=== PATIENT | male | born 1985 | race Caucasian/White ===

== ENCOUNTER 2022-05-09 15:27 | Emergency (ER) | payer OTHER ==
[~2022-05-09] VITALS: Ht 167.6 cm; Wt 70.3 kg
[2022-05-09 15:37] VITALS: BP 132/77
[2022-05-09] MEDS ORDERED: CLOT15CR27 TP (15:47)
== END 2022-05-09 16:01 | disposition home or self-care (01) ==
LOC: ER 15:29
DX: B35.3 Tinea pedis (principal); F17.200 Nicotine dependence, unspecified, uncomplicated; Z59.00 Homelessness unspecified

== ENCOUNTER 2024-05-06 13:16 | Inpatient (IN) | payer MEDICAID, OTHER ==
[~2024-05-06] VITALS: Ht 172.7 cm; Wt 66.2 kg
[~2024-05-06 13:16] MED LIST: CLOT15CR27 TP
[2024-05-06] MEDS ORDERED: VANCOMYCIN 1 GM /D5W 250 ML PB IV ONE (14:41)
[2024-05-06] MEDS ORDERED: PIPERACI/TAZO 3.375GM/D5W 50ML PB IV ONE (14:41)
[2024-05-06] MEDS: PIPERACILLIN /TAZOBACTAM 3.375 G in IV D5W 50 ML IV ONE ×2 (14:56→22:51)
[2024-05-06 15:01] LABS: POTASSIUM 4.2 mmol/L (3.5-5.1)
[2024-05-06 15:05] LABS: BASOPHILS % (AUTO) 1.1 % (0.0-2.0); EOSINOPHILS # (AUTO) 0.1 K/uL (0.0-0.7); EOSINOPHILS % (AUTO) 4.1 % (0.0-6.0); HEMATOCRIT 38 % (39-51); HEMOGLOBIN 12.7 g/dL (13.5-17.5); LYMPHOCYTES # (AUTO) 1.6 K/uL (0.8-4.8); LYMPHOCYTES % (AUTO) 49.6 % (20.0-44.0); MEAN CORPUSCULAR HEMOGLOBIN 28 PG (26.0-33.0); MEAN CORPUSCULAR HGB CONC 33 g/dl (31.0-36.0); MEAN CORPUSCULAR VOLUME 84 fL (80-96); MONOCYTES # (AUTO) 0.4 K/uL (0.1-1.30); MONOCYTES % (AUTO) 12.9 % (2.0-12.0); NEUTROPHILS # (AUTO) 1.1 K/uL (1.8-8.9); NEUTROPHILS % (AUTO) 32.3 % (43.0-81.0); PLATELET COUNT (AUTO) 361 K/uL (150-450); RED BLOOD CELL COUNT(AUTO) 4.53 MIL/uL (4.5-6.0); RED CELL DISTRIBUTION WIDTH 13.5 % (11.5-15.0); WHITE BLOOD COUNT (AUTO) 3.3 K/uL (4.3-11.0)
[2024-05-06] MEDS: VANCOMYCIN 1 GM in IV D5W 250 ML IV ONE ×2 (15:10→23:46)
[2024-05-06 15:15] LABS: CALCIUM, SERUM 9.7 mg/dL (8.5-10.1); INR 0.98 (0.91-1.10); PARTIAL THROMBOPLASTIN TIME 27.9 SEC (24.3-34.3); PROTHROMBIN TIME 10.4 SECS (9.2-11.1)
[2024-05-06 20:00] VITALS: BP 116/74; TEMP 97.9; O2SAT 98
[2024-05-06] MEDS ORDERED: ACETAMINOPHEN 325 MG TABLET PO PRN (22:30)
[2024-05-06] MEDS ORDERED: ONDANSETRON HCL/PF 4 MG/2 ML VIAL IVP PRN (22:30)
[2024-05-06] MEDS ORDERED: MAGNESIUM HYDROXIDE 30 ML UDC PO PRN (22:30)
[2024-05-06] MEDS ORDERED: Z GUARD REMEDY 4 OZ OINT TP PRN (22:30)
[2024-05-06] MEDS ORDERED: ZOLPIDEM TARTRATE 5 MG TABLET PO PRN (22:30)
[2024-05-06] MEDS ORDERED: MAG HYDROX/AL HYDROX/SIMETH 30 ML UDC PO PRN (22:30)
[2024-05-06] MEDS: PIPERACI/TAZO 3.375GM/D5W 50ML PB IV ONE (22:49)
[2024-05-06] MEDS: VANCOMYCIN 1 GM /D5W 250 ML PB IV ONE (23:43)
[2024-05-07] MEDS ORDERED: PIPERACILLIN /TAZOBACTAM 3.375 G in IV D5W 50 ML IV SCH (05:00)
[2024-05-07 06:13] LABS: BASOPHILS % (AUTO) 0.6 % (0.0-2.0); EOSINOPHILS # (AUTO) 0.2 K/uL (0.0-0.7); EOSINOPHILS % (AUTO) 3.2 % (0.0-6.0); HEMATOCRIT 39 % (39-51); LYMPHOCYTES # (AUTO) 1.6 K/uL (0.8-4.8); LYMPHOCYTES % (AUTO) 29.3 % (20.0-44.0); MEAN CORPUSCULAR HEMOGLOBIN 29 PG (26.0-33.0); MEAN CORPUSCULAR HGB CONC 33 g/dl (31.0-36.0); MEAN CORPUSCULAR VOLUME 86 fL (80-96); MONOCYTES # (AUTO) 0.6 K/uL (0.1-1.30); MONOCYTES % (AUTO) 10.6 % (2.0-12.0); NEUTROPHILS # (AUTO) 3.1 K/uL (1.8-8.9); NEUTROPHILS % (AUTO) 56.3 % (43.0-81.0); PLATELET COUNT (AUTO) 338 K/uL (150-450); RED BLOOD CELL COUNT(AUTO) 4.58 MIL/uL (4.5-6.0); RED CELL DISTRIBUTION WIDTH 13.5 % (11.5-15.0); WHITE BLOOD COUNT (AUTO) 5.4 K/uL (4.3-11.0)
[2024-05-07 06:24] LABS: CALCIUM, SERUM 8.5 mg/dL (8.5-10.1); CREATININE 0.9 mg/dL (0.6-1.3); MAGNESIUM 2.5 mg/dL (1.8-2.4); PHOSPHORUS 3.8 mg/dL (2.5-4.9); POTASSIUM 4.2 mmol/L (3.5-5.1)
[2024-05-07 07:30] VITALS: BP 125/90; TEMP 97.9; O2SAT 100
[2024-05-07] MEDS: VANCOMYCIN 1 GM in IV D5W 250 ML IV SCH (07:49)
[2024-05-07] MEDS: PIPERACILLIN /TAZOBACTAM 3.375 G in IV D5W 100 ML IV SCH (09:37)
[2024-05-07 16:00] VITALS: BP 116/80; TEMP 98.2; O2SAT 100
[2024-05-07] MEDS: LIDOCAINE 1% INJ 50 ML MDV IJ ONE (16:36)
[2024-05-07 20:15] VITALS: BP 102/67; TEMP 97.7; O2SAT 97
[2024-05-08 07:23] LABS: BASOPHILS % (AUTO) 0.5 % (0.0-2.0); EOSINOPHILS # (AUTO) 0.1 K/uL (0.0-0.7); EOSINOPHILS % (AUTO) 1.2 % (0.0-6.0); HEMATOCRIT 38 % (39-51); HEMOGLOBIN 12.7 g/dL (13.5-17.5); LYMPHOCYTES # (AUTO) 1.7 K/uL (0.8-4.8); LYMPHOCYTES % (AUTO) 30.8 % (20.0-44.0); MEAN CORPUSCULAR HEMOGLOBIN 28 PG (26.0-33.0); MEAN CORPUSCULAR HGB CONC 33 g/dl (31.0-36.0); MEAN CORPUSCULAR VOLUME 85 fL (80-96); MONOCYTES # (AUTO) 0.5 K/uL (0.1-1.30); MONOCYTES % (AUTO) 9.5 % (2.0-12.0); NEUTROPHILS # (AUTO) 3.3 K/uL (1.8-8.9); PLATELET COUNT (AUTO) 314 K/uL (150-450); RED BLOOD CELL COUNT(AUTO) 4.48 MIL/uL (4.5-6.0); RED CELL DISTRIBUTION WIDTH 13.3 % (11.5-15.0); WHITE BLOOD COUNT (AUTO) 5.6 K/uL (4.3-11.0)
[2024-05-08 07:34] LABS: CALCIUM, SERUM 8.8 mg/dL (8.5-10.1); MAGNESIUM 2.2 mg/dL (1.8-2.4); PHOSPHORUS 3.4 mg/dL (2.5-4.9); POTASSIUM 3.9 mmol/L (3.5-5.1)
[2024-05-08] MEDS: HYDROCODONE/APAP 5/325MG TABLET PO PRN (18:48)
[2024-05-08 20:00] VITALS: BP 121/85; TEMP 98.2; O2SAT 97
[2024-05-08] MEDS: AMOX/CLAVULANATE 875 MG TABLET PO SCH (21:15)
[2024-05-09 07:56] LABS: CALCIUM, SERUM 8.8 mg/dL (8.5-10.1); POTASSIUM 4.2 mmol/L (3.5-5.1)
[2024-05-09 08:00] VITALS: BP 93/75; TEMP 97.7; O2SAT 97
[2024-05-09 16:00] VITALS: BP 103/73; TEMP 97.7; O2SAT 97
[2024-05-09 21:19] VITALS: BP 101/68; TEMP 98.4; O2SAT 99
[2024-05-10 08:00] VITALS: BP 101/68; TEMP 98.4; O2SAT 97
[2024-05-10 08:01] LABS: CALCIUM, SERUM 8.9 mg/dL (8.5-10.1); CREATININE 0.9 mg/dL (0.6-1.3)
[2024-05-10 16:00] VITALS: BP 106/65; TEMP 97.9; O2SAT 94
[2024-05-11 07:00] VITALS: BP 93/61; TEMP 97.5; O2SAT 98
[2024-05-11 07:39] LABS: CALCIUM, SERUM 8.7 mg/dL (8.5-10.1); CREATININE 0.9 mg/dL (0.6-1.3); POTASSIUM 3.8 mmol/L (3.5-5.1)
[2024-05-11] MEDS ORDERED: AMOX-430 PO (08:56)
== END 2024-05-11 15:00 | disposition home or self-care (01) | DRG 364 ==
LOC: ER 13:16 → MED 17:12
PROVIDERS: ADMIT Student in an Organized Health Care Education/Training Program; ATTEND Internal Medicine
PROC: 0J9J0ZZ Drainage of Right Hand Subcutaneous Tissue and Fascia, Open Approach (ICD-10-PCS; principal; 2024-05-07)
DX: L03.011 Cellulitis of right finger (principal); D64.9 Anemia, unspecified; F17.210 Nicotine dependence, cigarettes, uncomplicated; Z59.00 Homelessness unspecified
CPT/HCPCS: 36415; 73140-TC; 80048-TC; 80202-TC; 83735-TC; 84100-TC; 85025-TC; 85652-TC; 85730-TC; 86140-TC; 87040-TC; 87081-TC; A4223; A6403; A6407; G0378; J2543; J3370; J3490; J7030; J7050; J7060

== ENCOUNTER 2024-07-19 07:17 | Inpatient (IN) | payer MEDICAID ==
[~2024-07-19] VITALS: Ht 172.7 cm; Wt 68.0 kg
[~2024-07-19 07:17] MED LIST changes: +AMOX-430 PO; -CLOT15CR27 TP
[2024-07-19] MEDS ORDERED: LIDOCAINE 1% INJ 50 ML MDV IJ ONE ×2 (07:37→07:53)
[2024-07-19] MEDS ORDERED: ONDANSETRON HCL/PF 4 MG/2 ML VIAL ONE (07:54)
[2024-07-19] MEDS ORDERED: MORPHINE SULFATE INJ 4 MG/ML DISP.SYRIN ONE (07:54)
[2024-07-19] MEDS: IV NS 0.9% 1,000 ML BAG IV ONE (07:56)
[2024-07-19 08:09] LABS: BASOPHILS # (AUTO) 0.1 K/uL (0.0-0.2); BASOPHILS % (AUTO) 0.5 % (0.0-2.0); EOSINOPHILS # (AUTO) 0.2 K/uL (0.0-0.7); EOSINOPHILS % (AUTO) 1.8 % (0.0-6.0); HEMATOCRIT 37 % (39-51); HEMOGLOBIN 12.5 g/dL (13.5-17.5); LYMPHOCYTES # (AUTO) 1.9 K/uL (0.8-4.8); LYMPHOCYTES % (AUTO) 17.7 % (20.0-44.0); MEAN CORPUSCULAR HEMOGLOBIN 28 PG (26.0-33.0); MEAN CORPUSCULAR HGB CONC 34 g/dl (31.0-36.0); MEAN CORPUSCULAR VOLUME 84 fL (80-96); MONOCYTES # (AUTO) 1.2 K/uL (0.1-1.30); NEUTROPHILS # (AUTO) 7.3 K/uL (1.8-8.9); PLATELET COUNT (AUTO) 379 K/uL (150-450); RED BLOOD CELL COUNT(AUTO) 4.44 MIL/uL (4.5-6.0); RED CELL DISTRIBUTION WIDTH 13.8 % (11.5-15.0); WHITE BLOOD COUNT (AUTO) 10.7 K/uL (4.3-11.0)
[2024-07-19] MEDS: ONDANSETRON HCL/PF 4 MG/2 ML VIAL IV ONE (08:10)
[2024-07-19] MEDS: PIPERACILLIN /TAZOBACTAM 3.375 G in IV D5W 50 ML IV ONE (08:11)
[2024-07-19 08:13] LABS: CALCIUM, SERUM 9.4 mg/dL (8.5-10.1); CREATININE 0.9 mg/dL (0.6-1.3); POTASSIUM 4.3 mmol/L (3.5-5.1)
[2024-07-19] MEDS: LIDOCAINE 1% INJ 50 ML MDV IJ ONE (08:14)
[2024-07-19] MEDS: MORPHINE SULFATE INJ 2 MG/ML DISP.SYRIN IV ONE (08:15)
[2024-07-19] MEDS: VANCOMYCIN 1 GM in IV D5W 250 ML IV ONE (08:16)
[2024-07-19 08:23] LABS: LACTIC ACID 0.8 mmol/L (0.4-2.0)
[2024-07-19 16:00] VITALS: BP 111/83; TEMP 97.7; O2SAT 99
[2024-07-19] MEDS ORDERED: ACETAMINOPHEN 325 MG TABLET PO PRN (16:30)
[2024-07-19] MEDS ORDERED: ONDANSETRON HCL/PF 4 MG/2 ML VIAL IV PRN (16:30)
[2024-07-19] MEDS ORDERED: CEFEPIME 1 GM in IV D5W 50 ML IV SCH (16:30)
[2024-07-19] MEDS ORDERED: ZOLPIDEM TARTRATE 5 MG TABLET PO PRN (16:30)
[2024-07-19] MEDS: CEFEPIME 1 GM in IV D5W 50 ML IV SCH (17:13)
[2024-07-19] MEDS: VANCOMYCIN 1 GM in IV D5W 250ml IV SCH (17:54)
[2024-07-20 08:50] LABS: BASOPHILS % (AUTO) 0.5 % (0.0-2.0); EOSINOPHILS # (AUTO) 0.3 K/uL (0.0-0.7); EOSINOPHILS % (AUTO) 5.2 % (0.0-6.0); HEMATOCRIT 35 % (39-51); HEMOGLOBIN 11.6 g/dL (13.5-17.5); LYMPHOCYTES # (AUTO) 1.4 K/uL (0.8-4.8); LYMPHOCYTES % (AUTO) 25.6 % (20.0-44.0); MEAN CORPUSCULAR HEMOGLOBIN 28 PG (26.0-33.0); MEAN CORPUSCULAR HGB CONC 33 g/dl (31.0-36.0); MEAN CORPUSCULAR VOLUME 84 fL (80-96); MONOCYTES # (AUTO) 0.6 K/uL (0.1-1.30); MONOCYTES % (AUTO) 10.6 % (2.0-12.0); NEUTROPHILS # (AUTO) 3.2 K/uL (1.8-8.9); NEUTROPHILS % (AUTO) 58.1 % (43.0-81.0); PLATELET COUNT (AUTO) 327 K/uL (150-450); RED BLOOD CELL COUNT(AUTO) 4.14 MIL/uL (4.5-6.0); RED CELL DISTRIBUTION WIDTH 13.9 % (11.5-15.0); WHITE BLOOD COUNT (AUTO) 5.6 K/uL (4.3-11.0)
[2024-07-20 09:06] LABS: CALCIUM, SERUM 8.8 mg/dL (8.5-10.1); CREATININE 0.8 mg/dL (0.6-1.3); POTASSIUM 4.3 mmol/L (3.5-5.1)
[2024-07-20 16:00] VITALS: BP 105/67; TEMP 97.9; O2SAT 98
[2024-07-20 20:00] VITALS: BP 118/80; TEMP 98.3; O2SAT 100
[2024-07-21 08:00] VITALS: BP 108/72; TEMP 97.9; O2SAT 100
[2024-07-21 16:00] VITALS: BP 120/78; TEMP 98.2; O2SAT 100
[2024-07-21 20:00] VITALS: BP 119/82; TEMP 98.2
[2024-07-22 04:00] VITALS: BP 117/79; TEMP 97.9; O2SAT 100
[2024-07-22 08:00] VITALS: BP 123/95; TEMP 98.2; O2SAT 99
[2024-07-22] MEDS: HYDROCODONE/APAP 5/325MG TABLET PO PRN (08:02)
[2024-07-22 09:37] LABS: CALCIUM, SERUM 9.8 mg/dL (8.5-10.1); POTASSIUM 3.6 mmol/L (3.5-5.1)
[2024-07-22 14:24] LABS: HIV-1 p24 ANTIGEN NON REACTIVE (NONREACTIVE); HIV-1/2 ANTIBODY NON REACTIVE (NONREACTIVE)
[2024-07-22 15:09] LABS: CALCIUM, SERUM 9.6 mg/dL (8.5-10.1); CREATININE 0.9 mg/dL (0.6-1.3); POTASSIUM 3.7 mmol/L (3.5-5.1)
[2024-07-22 16:00] VITALS: BP 141/95; TEMP 98.8; O2SAT 99
[2024-07-22 20:00] VITALS: BP 114/81; TEMP 97.7; O2SAT 96
[2024-07-23 04:00] VITALS: BP 104/82; TEMP 97.5; O2SAT 96
[2024-07-23 08:00] VITALS: BP 102/70; TEMP 97.7; O2SAT 96
[2024-07-23 09:13] LABS: CALCIUM, SERUM 8.9 mg/dL (8.5-10.1); POTASSIUM 3.1 mmol/L (3.5-5.1)
[2024-07-23] MEDS ORDERED: POTASSIUM CHLORIDE 20 MEQ TAB.PRT.SR PO ONE (10:00)
[2024-07-23] MEDS ORDERED: GADOTERATE MEGLUMINE 10 MMOL/20 ML VIAL IV ONE (13:36)
[2024-07-23 13:37] LABS: CREATININE 0.8 mg/dL (0.6-1.3); POTASSIUM 3.4 mmol/L (3.5-5.1)
[2024-07-23] MEDS: POTASSIUM CHLORIDE 20 MEQ TAB.PRT.SR PO ONE (15:44)
[2024-07-23 16:00] VITALS: BP 110/70; TEMP 98; O2SAT 96
[2024-07-23 20:00] VITALS: BP 93/61; TEMP 97.3; O2SAT 96
[2024-07-24 08:24] LABS: CALCIUM, SERUM 8.9 mg/dL (8.5-10.1); CREATININE 0.9 mg/dL (0.6-1.3); POTASSIUM 3.9 mmol/L (3.5-5.1)
[2024-07-24] MEDS: VANCOMYCIN 750 MG in IV D5W 250 ML IV SCH (12:22)
[2024-07-24 13:43] LABS: CALCIUM, SERUM 9.1 mg/dL (8.5-10.1); POTASSIUM 4.1 mmol/L (3.5-5.1)
[2024-07-24] MEDS ORDERED: CEFT2VIA14 IV (15:08)
[2024-07-24] MEDS: CEFTRIAXONE 2 G in IV D5W 100 ML IV ONE (19:05)
[2024-07-24 20:00] VITALS: BP 102/64; TEMP 98.2; O2SAT 98
[2024-07-25 00:07] LABS: HEPATITIS B CORE AB, IgM Negative (Negative)
[2024-07-25 03:35] LABS: CALCIUM, SERUM 8.9 mg/dL (8.5-10.1); CREATININE 0.9 mg/dL (0.6-1.3); POTASSIUM 3.9 mmol/L (3.5-5.1)
[2024-07-25 07:30] VITALS: BP 100/62; TEMP 98.1; O2SAT 97
[2024-07-25] MEDS ORDERED: AMOX500C2 PO (08:45)
[2024-07-25] MEDS ORDERED: CEFTRIAXONE 1 G VIAL IV SCH (19:00)
== END 2024-07-25 12:25 | disposition home health service (06) | DRG 344 ==
LOC: ER 07:23 → MEDSG1 13:38 → MED 07-23 15:47
PROVIDERS: ADMIT Internal Medicine; ATTEND Internal Medicine
PROC: 0H9FXZZ Drainage of Right Hand Skin, External Approach (ICD-10-PCS; principal; 2024-07-19)
DX: M86.8X4 Other osteomyelitis, hand (principal); F17.210 Nicotine dependence, cigarettes, uncomplicated; L03.011 Cellulitis of right finger; Z59.00 Homelessness unspecified; Z20.822 Contact with and (suspected) exposure to COVID-19; Z71.6 Tobacco abuse counseling
CPT/HCPCS: 36415; 73140-TC; 73220-TC; 80048-TC; 80202-TC; 83605-TC; 85025-TC; 85652-TC; 86140-TC; 86705; 86803; 87040-TC; 87340; 87806; A4223; A9575; G0378; J0692; J0696; J2270; J2405; J2543; J3370; J3371; J3490; J7030; J7040; J7050; J7060